=== PATIENT | male | born 1975 | race Caucasian/White ===

== ENCOUNTER 2017-09-10 09:58 | Emergency (ER) | payer BC ==
[2017-09-10 10:29] LABS: #Eosinphils 0.1 thou/uL (0.0-0.7); #Lymphocytes 1.7 thou/uL (1.20-3.40); #Monocytes 0.6 thou/uL (0.11-0.59); #Neutrophils 9.5 thou/uL (1.40-6.50); %Basophils 0.3 % (0.0-1.0); %Lymphocytes 14.4 % (21.0-51.0); %Monocytes 4.6 % (0.0-10.0); %Neutrophils 79.8 % (42.0-75.0); Hemoglobin 16.5 g/dL (14.0-18.0); Mean Corpuscular HGB CONC 34.5 g/dL (32.0-36.0); Mean Corpuscular Hemoglobin 31.7 pg (27.0-31.0); Mean Corpuscular Volume 91.6 fl (80.0-94.0); Mean Platelet Volume 7.7 fL (7.4-10.4); Platelet Count 207 thou/uL (130-400); RBC Distribution Width 12.3 % (11.5-14.5); White Blood Cell (WBC) Count 11.9 thou/uL (4.8-10.8)
[2017-09-10 10:49] LABS: ALT (SGPT) 12 U/L (8-55); AST (SGOT) 15 U/L (5-34); Albumin 3.6 g/dL (3.5-5.0); Alkaline Phosphatase 67 U/L (40-150); Anion Gap 7 mmol/L (10-20); BUN (Urea Nitrogen) 12 mg/dL (8.9-20.6); Bilirubin, Total 0.6 mg/dL (0.2-1.2); Calc. Creatinine Clearance 0 mL/min (70-130); Calcium 9.5 mg/dL (7.8-10.44); Carbon Dioxide 27 mmol/L (22-29); Chloride 108 mmol/L (98-107); Estimated GFR-MDRD Greater than 90; Globulin 2.4 g/dL (2.4-3.5); Glucose 116 mg/dL (70-105); Potassium 3.6 mmol/L (3.5-5.1); Sodium 138 mmol/L (136-145)
[2017-09-10] MEDS ORDERED: Morphine 4 MG/ML VIAL ONE (11:03)
[2017-09-10] MEDS ORDERED: ISOVUE-370 76%-LOCM 1 ML ONE (11:27)
[2017-09-10] MEDS ORDERED: Fentanyl 100 MCG/2 ML VIAL ONE (11:56)
--- NOTE | 2017-09-10 14:12 | CT ---
CT ABDOMEN AND PELVIS WITH CONTRAST: Date: 09/10/17 COMPARISON: None. HISTORY: Abdominal pain. TECHNIQUE: Multiple contiguous axial images were obtained in a CT of the abdomen and pelvis with contrast. PO co ntrast was administered. Coronal reformats were performed. FINDINGS: The liver, gallbladder, kidneys, adrenal glands, spleen, and pancreas are unremarkable. No free air, free fluid, or stranding changes are seen in the abdomen or pelvis. The large and small bowel are unremarkable. The appendix is normal and contrast-filled. No abdominal or pelvic lymphadenopathy are appreciated. Mild degenerative changes are seen in the spine. Visualized inferior thorax and abdominal wall soft t issues are unremarkable. IMPRESSION: No evidence of acute intra-abdominal/pelvic abnormality. POS: [facility]
== END 2017-09-10 14:22 | disposition home or self-care (01) ==
LOC: ERS 09:58
DX: R10.31 Right lower quadrant pain (principal); F17.210 Nicotine dependence, cigarettes, uncomplicated; Z71.6 Tobacco abuse counseling
CPT/HCPCS: 74177; 80053; 83690; 85025; 86140; 96361; 96374; 96375; 99406; J2270; J3010